=== PATIENT | male | born 1950 | race American Indian/Alaskan Native ===

== ENCOUNTER 2020-12-21 17:49 | Emergency (ER) | payer BC ==
[2020-12-21] MEDS ORDERED: TETANUS,DIPH,PERTUSS(ACELL) VACCINE 0.5 ML SYRINGE IM ONE ×2 (18:29→19:20)
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
[2020-12-21] MEDS ORDERED: LIDOCAINE-MPF (1%) 10 MG/1 ML VIAL 5 ML INFILTRATI ONE (19:52)
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
--- NOTE | 2020-12-21 21:28 | XRay Report ---
XR tibia fibula 2V LT INDICATION / CLINICAL INFORMATION: difficulty with foreign body. COMPARISON: Same-day radiograph FINDINGS: 6 mm radiopaque foreign body remains in stable position within the subcutaneous tissues of the medial mid foreleg. No interval change. Signer Name: Ryan Robledo MD Signed: 12/21/2020 9:24 PM Workstation Name: [id number]
[2020-12-21 21:49] VITALS: BP 148/85
== END 2020-12-21 22:19 | disposition home or self-care (01) ==
LOC: ED 17:49
DX: S81.842A Puncture wound with foreign body, left lower leg, initial encounter (principal); S80.852A Superficial foreign body, left lower leg, initial encounter; E11.8 Type 2 diabetes mellitus with unspecified complications; Y24.0XXA Airgun discharge, undetermined intent, initial encounter; Y93.89 Activity, other specified; Y92.89 Other specified places as the place of occurrence of the external cause; Y99.8 Other external cause status
CPT/HCPCS: 90471; 90715; 99283